=== PATIENT | female | born 1945 | race Two or more races ===

== ENCOUNTER 2020-01-08 09:03 | Day surgery (SDC) | payer MEDICARE, BC ==
[~2020-01-08] VITALS: Ht 161.3 cm; Wt 114.3 kg
[2020-01-08] VITALS (10 sets, daily range): BP systolic 101–147; BP diastolic 56–80
--- NOTE | 2020-01-08 07:30 | Pre-Procedure Note/Attestation ---
Pre-Procedure Note/Attestation Complete Prior to Procedure Planned Procedure: right - Removal of cataract and placement of intraocular lens, right eye Procedure Narrative: Removal of cataract and placement of intraocular lens, right eye Indications for Procedure Pre-Operative Diagnosis: Cataract, combined, right eye Attestation I attest that I discussed the nature of the procedure; its benefits; risks and complications; and alternatives (and the risks and benefits of such alternatives ), prior to the procedure, with the patient (or the patient's legal representative personal service). I attest that, if there was a reasonable possibility of needing a blood transfusion, the patient (or the patient's legal representative personal service) was given the [place] [facility] [employer] [facility] standardized written summary, pursuant to the Abilio [place] Blood Safety Act ([place] Health and Safety Code # 1645, as amended). I attest that I re-evaluated the patient just prior to the surgery and that there has been no change in the patient's H&P, except as documented below: Oswaldo Jaquez MD Jan 08, 2020 07:30
[~2020-01-08 09:03] MED LIST: Akten 3.5% 1ml Btl RIGHT EYE ONE; Cyclopentolate 1% Opth Sol 2ml RIGHT EYE ONE; Diclofenac Sod 0.1% Op Soln RIGHT EYE ONE; Phenylephrine 10% Opth Soln 5ml RIGHT EYE ONE; Tobradex Opth Susp 2.5ml RIGHT EYE ONE; Tropicamide 1% Opth 15ml Soln RIGHT EYE ONE; Vigamox Opth Soln 3ml RIGHT EYE ONE
[2020-01-08] MEDS ORDERED: Tropicamide 1% Opth 15ml Soln RIGHT EYE SCH (10:00)
[2020-01-08] MEDS: Vigamox Opth Soln 3ml RIGHT EYE SCH ×2 (10:05→10:15)
[2020-01-08] MEDS: Tobradex Opth Susp 2.5ml RIGHT EYE SCH ×2 (10:06→10:15)
[2020-01-08] MEDS: Diclofenac Sod 0.1% Op Soln RIGHT EYE SCH ×2 (10:06→10:15)
[2020-01-08] MEDS: Cyclopentolate 1% Opth Sol 2ml RIGHT EYE SCH ×2 (10:06→10:15)
[2020-01-08] MEDS: Phenylephrine 10% Opth Soln 5ml RIGHT EYE SCH ×2 (10:06→10:15)
[2020-01-08] MEDS: Akten 3.5% 1ml Btl RIGHT EYE SCH ×2 (10:06→10:15)
[2020-01-08] MEDS: Tropicamide 1% Opth 15ml Soln RIGHT EYE SCH ×2 (10:08→10:15)
[2020-01-08] MEDS ORDERED: XANAX0.5 MG ORAL (10:14)
[2020-01-08] MEDS ORDERED: ALLOPURINOL300 M1 ORAL (10:14)
[2020-01-08] MEDS ORDERED: IRON325 M1 PO (10:14)
[2020-01-08] MEDS ORDERED: VITAMIN B125000 MCG PO (10:14)
[2020-01-08] MEDS ORDERED: SPIRONOLACTONE100 MG ORAL (10:14)
[2020-01-08] MEDS ORDERED: COQ1050 MG PO (10:14)
[2020-01-08] MEDS ORDERED: SERTRALINE HCL25 MG ORAL (10:14)
[2020-01-08] MEDS ORDERED: ATORVASTATIN CA20 MG ORAL (10:14)
[2020-01-08] MEDS ORDERED: JANUMET 50-1,01 EACH ORAL (10:14)
[2020-01-08] MEDS ORDERED: MAGNESIUM500 MG PO (10:14)
[2020-01-08] MEDS ORDERED: BENAZEPRIL HCL10 MG ORAL (10:14)
--- NOTE | 2020-01-08 10:32 | Anethesia Preoperative Eval ---
Anesthesia Pre-op PMH/ROS General Date of Evaluation: Jan 08, 2020 Time of Evaluation: 10:29 Anesthesiologist: Regina ASA Score: ASA 3 Mallampati Score Class I : Soft palate, uvula, fauces, pillars visible Class II: Soft palate, uvula, fauces visible Class III: Soft palate, base of uvula visible Class IV: Only hard plate visible Mallampati Classification: Class III Surgeon: Gisele Diagnosis: R eye cataract Surgical Procedure: Cataract extraction Anesthesia History: none Family History: no anesthesia problems Allergies: Coded Allergies: BANANA (Verified Allergy, Unknown, 01/08/20) [place] (Verified Allergy, Unknown, 01/08/20) Medications: see eMAR Patient NPO?: Yes Past Medical History Cardiovascular: Reports: HTN; Denies: CAD, [place], valve dz, arrhythmia, other Pulmonary: 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; Denies: asthma, COPD, other Gastrointestinal/Genitourinary: Reports: GERD, other - Bladder CA s/p treatment ; Denies: CRI, ESRD Neurologic/Psychiatric: Reports: depression/anxiety; Denies: dementia, CVA, TIA, other Endocrine: Reports: DM, hypothyroidism; Denies: steroids, other HEENT: Reports: cataract (L), cataract (R); Denies: glaucoma, [place] (L), [place] (R), other Hematology/Immune: Denies: anemia, DVT, bleeding disorder, other Musculoskeletal/Integumentary: Reports: OA Other: obesity PMH Narrative: as above PSxH Narrative: Cholecystectomy, hernia repair Anesthesia Pre-op Phys. Exam Physician Exam Last Vital Signs Date Time Temp Pulse Resp B/P (MAP) Pulse Ox O2 Delivery O2 Flow Rate FiO2 01/08/20 09:45 Room Air 01/08/20 09:43 97.8 79 18 108/80 95 Constitutional: NAD Neurologic: CN 2-12 intact Cardiovascular: RRR Respiratory: CTA Gastrointestinal: other - morbid obesity Airway Exam Mallampati Score: Class III MO: limited Neck: short ROM: limited Teeth: missing Dentures: no upper, no lower Anesthesia Pre-op A/P Labs Chemistry Test 01/08/20 09:39 POC Whole Blood Glucose Pending Studies Pre-op Studies: EKG - SR Risk Assessment & Plan Assessment: ASA 3 Plan: Mac Status Change Before Surgery: No Pre-Antibiotics Drug: None Pascual Tapia MD Jan 08, 2020 10:32
[2020-01-08] MEDS ORDERED: LR 1000ml 1,000 ML IVLG SCH (10:33)
[2020-01-08] MEDS ORDERED: fentaNYL 100 mcg/2 mL IV PRN (10:45)
[2020-01-08] MEDS ORDERED: Lidocaine 4% Amp 5ml ONE (10:49)
[2020-01-08] MEDS ORDERED: Lidocaine 1% MPF 10mg/ml 5ml ONE (10:49)
[2020-01-08] MEDS ORDERED: EPINEPHrine 1mg/1ml Amp ONE ×2 (10:49→11:59)
[2020-01-08] MEDS ORDERED: timoloL maleate 0.5% Op Soln 2.5ml ONE (10:50)
[2020-01-08] MEDS ORDERED: Carbachol 0.01% Op Soln 1.5ml vial ONE (10:50)
[2020-01-08] MEDS ORDERED: Fluorescein Strips ONE (10:50)
[2020-01-08] MEDS ORDERED: prednisoLONE acetate 1% Opth Susp 1ml ONE (10:50)
[2020-01-08] MEDS ORDERED: Maxitrol Opth Oint 3.5gm ONE (10:51)
[2020-01-08] MEDS ORDERED: BSS 500ml btl ONE ×2 (10:51→11:59)
[2020-01-08] MEDS ORDERED: BSS 15ml BTL ONE (10:51)
[2020-01-08] MEDS ORDERED: Bupivacaine 0.75% 30ml vial INJ ONE (10:52)
[2020-01-08] MEDS ORDERED: Povidone-Iodine 5% opth solution ONE (10:52)
[2020-01-08] MEDS ORDERED: Sodium Hyaluronate 10 mg/ml 0.85ml ONE ×2 (10:52→12:29)
[2020-01-08] MEDS ORDERED: Tetracaine 0.5% Opth 4ml Soln ONE (10:52)
[2020-01-08] MEDS ORDERED: Sterile Water Irrig 1000ml IRRIG ONE (11:30)
[2020-01-08] MEDS ORDERED: NS Irrig 1000ml ONE (11:30)
[2020-01-08] MEDS ORDERED: LR 1000ml ONE (11:30)
--- NOTE | 2020-01-08 12:24 | Immediate Post-Op Evaluation ---
Immediate Post-Op Evalulation Immediate Post-Op Evalulation Procedure: R eye cataract extraction with IOL Date of Evaluation: Jan 08, 2020 Time of Evaluation: 12:23 IV Fluids: 300 Blood Products: none Estimated Blood Loss: none Urinary Output: none Blood Pressure Systolic: 112 Blood Pressure Diastolic: 56 Pulse Rate: 86 Respiratory Rate: 22 O2 Sat by Pulse Oximetry: 99 Temperature (Fahrenheit): 97.6 Pain Score (1-10): 1 Nausea: No Vomiting: No Complications NONE Patient Status: awake, patent, none Hydration Status: adequate Pascual Tapia MD Jan 08, 2020 12:24
--- NOTE | 2020-01-08 12:25 | Discharge Instructions ---
Discharge Instructions Discharge Instructions Follow Up Orders Wear eye shield at all times except to place eye drops Continue preoperative eye drops Followup with Dr Jaquez tomorrow in his office For Congestive Heart Failure Reminder Report to your physician any weight gain of 5 pounds or more in one week. Oswaldo Jaquez MD Jan 08, 2020 12:25
--- NOTE | 2020-01-08 12:26 | Brief Operative Note ---
Immediate Post Operative Note Operative Note Pre-op Diagnosis: Cataract, combined, right eye Procedure: Phaco PC IOL OD Post-op Diagnosis: same as pre-op Surgeon: Gurpreet Jaquez MD Strategic Planning Specialist: None Anesthesiologist: Dr Tapia Anesthesia: local, MAC Specimen: none Complications: none Fluids: see chart Implant(s) used?: Yes - ZCB00 19.0 Oswaldo Fitzpatrick MD Jan 08, 2020 12:26
--- NOTE | 2020-01-08 14:08 | 48 Hour Post Anesthesia Eval ---
Post Anesthesia Evaluation Procedure: R eye cataract extraction with IOL Date of Evaluation: Jan 08, 2020 Time of Evaluation: 14:07 Blood Pressure Systolic: 108 0: 56 Pulse Rate: 82 Respiratory Rate: 20 Temperature (Fahrenheit): 97.6 O2 Sat by Pulse Oximetry: 98 Airway: patent Nausea: No Vomiting: No Pain Intensity: 1 Hydration Status: adequate Cardiopulmonary Status: stable Mental Status/LOC: patient returned to baseline Follow-up Care/Observations: n/a Post-Anesthesia Complications: none Follow-up care needed: ready to discharge Pascual Tapia MD Jan 08, 2020 14:08
--- NOTE | 2020-01-09 16:29 | Operative Note - Dictated ---
DATE OF OPERATION: 01/08/2020 SURGEON: Oswaldo Jaquez M.D. MANAGER ENGAGEMENT SURGEON: None. ANESTHESIOLOGIST: Pascual Tapia M.D. ANESTHESIA: Local/standby/monitored anesthesia care. PREOPERATIVE DIAGNOSIS: Cataract, combined, right eye. POSTOPERATIVE DIAGNOSIS: Cataract, combined, right eye. PROCEDURE: 1. Phacoemulsification of cataract, right eye. 2. Placement of posterior chamber intraocular lens, right eye (model ZCB00, 19.0). SPECIMENS: None. COMPLICATIONS: None. INDICATIONS FOR SURGERY: The patient has had the painless progressive decrease in visual acuity in the right eye secondary to cataract. The patient understands the risks of surgery including infection, bleeding, need for further surgery, loss of vision, no improvement of vision, loss of the eye, loss of life, glaucoma, retinal detachment, and understands these risks and elects to proceed with surgery. FINDINGS: The patient had a +2 to 3 nuclear sclerotic cataract as well as a +1 to 2 cortical cataract. OPERATIVE NOTE: After informed consent was obtained, the patient was brought into the operating room, placed in supine position. Cardiac and respiratory monitors were attached. A time-out was performed and all criteria were met in the room and everyone agreed. The right eye was then draped and prepped in sterile manner for ocular surgery. A lid speculum was placed in the eye. Lidocaine 1% preservative-free was injected at the approximate 9 o'clock limbus. A conjunctival peritomy from approximately 8:30 to 9:30 was made and dissected posteriorly. Hemostasis was maintained with bipolar cautery. A 2.6 mm limbal incision was made centered approximately 9 o'clock and dissected anteriorly. A paracentesis was made at approximately 12 o'clock and Shugarcaine was injected into the anterior chamber, followed by Healon. The anterior chamber was then entered using a 2.6 mm keratome through the limbal incision. An anterior capsulorrhexis was then performed. Hydrodissection and hydrodelineation of the lens was then performed. The lens was then phacoemulsified using divide and conquer four-quadrant technique. Residual cortical material was then aspirated. Healon was injected into the anterior chamber and capsular bag. The lens was taken from its package, placed into the cartridge, and the tip of the cartridge was placed through a limbal incision. The lens was injected into the capsular bag and centered nicely with a [place] hook. Healon was then aspirated from the anterior chamber and capsular bag. One 10-0 nylon interrupted suture was then placed through the limbal incision and the knot was rotated and buried. The wounds were also hydrated, closed and also checked and found to be watertight. The conjunctiva was then closed with forceps cautery. The lid speculum and drapes were removed from the eye and drops of moxifloxacin and Pred Forte were applied to the eye followed by Maxitrol ointment and then a shield. Timoptic 0.5% eye drops were previously applied also just prior to the ointment being applied to the eye. The patient after the shield was placed. The patient tolerated the procedure well and left the operating room in a fairly stable condition. Oswaldo Jaquez M.D. DR: KELSEY JOB#: [id number] CC:
== END 2020-01-08 13:30 | disposition home or self-care (01) ==
LOC: SUR 09:03
DX: H25.11 Age-related nuclear cataract, right eye (principal); H25.011 Cortical age-related cataract, right eye; G47.33 Obstructive sleep apnea (adult) (pediatric); I10 Essential (primary) hypertension; K21.9 Gastro-esophageal reflux disease without esophagitis; Z85.51 Personal history of malignant neoplasm of bladder; E11.9 Type 2 diabetes mellitus without complications; E03.9 Hypothyroidism, unspecified; M19.90 Unspecified osteoarthritis, unspecified site; Z90.49 Acquired absence of other specified parts of digestive tract; E66.01 Morbid (severe) obesity due to excess calories; Z91.018 Allergy to other foods
CPT/HCPCS: 66984; 82962; 94003; J0171; J1100; J2704; J3010; J7120; U0002; V2632; 94150